=== PATIENT | male | born 1945 | race American Indian/Alaskan Native ===

== ENCOUNTER 2016-10-20 08:07 | Outpatient (CLI) | payer MEDICARE ==
[2016-10-20] MEDS ORDERED: XYLOCAINE TOPICAL 4% TP ONE (08:30)
[2016-10-20] MEDS ORDERED: XYLOCAINE TOPICAL 2% TP ONE (08:30)
== END 2016-10-20 08:08 | disposition home or self-care (01) ==
LOC: WOUND 08:07
PROVIDERS: ATTEND Internal Medicine
DX: I87.313 Chronic venous hypertension (idiopathic) with ulcer of bilateral lower extremity (principal); L97.821 Non-pressure chronic ulcer of other part of left lower leg limited to breakdown of skin; L97.811 Non-pressure chronic ulcer of other part of right lower leg limited to breakdown of skin; I89.0 Lymphedema, not elsewhere classified; I50.20 Unspecified systolic (congestive) heart failure; E78.2 Mixed hyperlipidemia; E11.43 Type 2 diabetes mellitus with diabetic autonomic (poly)neuropathy; I10 Essential (primary) hypertension
CPT/HCPCS: 29580

== ENCOUNTER 2016-10-24 11:33 | Outpatient (CLI) | payer MEDICARE | END 2016-10-24 11:34 | disposition home or self-care (01) | LOC: WOUND 11:33 | PROVIDERS: ATTEND Podiatrist | DX: I87.313 Chronic venous hypertension (idiopathic) with ulcer of bilateral lower extremity (principal); L97.821 Non-pressure chronic ulcer of other part of left lower leg limited to breakdown of skin; L97.811 Non-pressure chronic ulcer of other part of right lower leg limited to breakdown of skin; I89.0 Lymphedema, not elsewhere classified; E13.43 Other specified diabetes mellitus with diabetic autonomic (poly)neuropathy; E78.2 Mixed hyperlipidemia; I50.20 Unspecified systolic (congestive) heart failure | CPT/HCPCS: 29580; 99213; G0463 ==

== ENCOUNTER 2016-10-27 09:29 | Outpatient (CLI) | payer MEDICARE ==
[2016-10-27] MEDS ORDERED: XYLOCAINE TOPICAL 2% TP ONE ×2 (11:05→15:05)
== END 2016-10-27 09:30 | disposition home or self-care (01) ==
LOC: WOUND 09:29
PROVIDERS: ATTEND Internal Medicine
DX: I87.313 Chronic venous hypertension (idiopathic) with ulcer of bilateral lower extremity (principal); L97.821 Non-pressure chronic ulcer of other part of left lower leg limited to breakdown of skin; L97.811 Non-pressure chronic ulcer of other part of right lower leg limited to breakdown of skin; I89.0 Lymphedema, not elsewhere classified; E08.8 Diabetes mellitus due to underlying condition with unspecified complications; E13.43 Other specified diabetes mellitus with diabetic autonomic (poly)neuropathy; I11.0 Hypertensive heart disease with heart failure; I50.20 Unspecified systolic (congestive) heart failure; E10.40 Type 1 diabetes mellitus with diabetic neuropathy, unspecified

== ENCOUNTER 2016-11-07 09:52 | Outpatient (CLI) | payer MEDICARE | END 2016-11-07 09:53 | disposition home or self-care (01) | LOC: WOUND 09:52 | PROVIDERS: ATTEND Podiatrist | DX: I87.313 Chronic venous hypertension (idiopathic) with ulcer of bilateral lower extremity (principal); E10.622 Type 1 diabetes mellitus with other skin ulcer; L97.811 Non-pressure chronic ulcer of other part of right lower leg limited to breakdown of skin; E13.43 Other specified diabetes mellitus with diabetic autonomic (poly)neuropathy; I89.0 Lymphedema, not elsewhere classified; E78.2 Mixed hyperlipidemia; I11.0 Hypertensive heart disease with heart failure; I50.9 Heart failure, unspecified | CPT/HCPCS: 29581 ==

== ENCOUNTER 2016-11-10 07:42 | Outpatient (CLI) | payer MEDICARE ==
[2016-11-10] MEDS ORDERED: XYLOCAINE TOPICAL 4% TP ONE ×2 (08:16→11:07)
== END 2016-11-10 07:43 | disposition home or self-care (01) ==
LOC: WOUND 07:42
PROVIDERS: ATTEND Internal Medicine
DX: I87.313 Chronic venous hypertension (idiopathic) with ulcer of bilateral lower extremity (principal); E10.622 Type 1 diabetes mellitus with other skin ulcer; L97.821 Non-pressure chronic ulcer of other part of left lower leg limited to breakdown of skin; L97.811 Non-pressure chronic ulcer of other part of right lower leg limited to breakdown of skin; I89.0 Lymphedema, not elsewhere classified; E10.40 Type 1 diabetes mellitus with diabetic neuropathy, unspecified; E08.8 Diabetes mellitus due to underlying condition with unspecified complications; E13.43 Other specified diabetes mellitus with diabetic autonomic (poly)neuropathy; E78.2 Mixed hyperlipidemia; I11.0 Hypertensive heart disease with heart failure; I50.20 Unspecified systolic (congestive) heart failure

== ENCOUNTER 2016-11-13 10:29 | Outpatient (CLI) | payer MEDICARE ==
[2016-11-13] MEDS ORDERED: AD OINTMENT TP ONE (10:56)
== END 2016-11-13 10:30 | disposition home or self-care (01) ==
LOC: WOUND 10:29
PROVIDERS: ATTEND Nurse Practitioner
DX: I87.313 Chronic venous hypertension (idiopathic) with ulcer of bilateral lower extremity (principal); L97.821 Non-pressure chronic ulcer of other part of left lower leg limited to breakdown of skin; L97.811 Non-pressure chronic ulcer of other part of right lower leg limited to breakdown of skin; E78.2 Mixed hyperlipidemia; E10.43 Type 1 diabetes mellitus with diabetic autonomic (poly)neuropathy; I11.0 Hypertensive heart disease with heart failure; I50.9 Heart failure, unspecified; I89.0 Lymphedema, not elsewhere classified
CPT/HCPCS: 29581; G0463; 99212; A6250

== ENCOUNTER 2016-11-17 09:20 | Outpatient (CLI) | payer MEDICARE ==
[2016-11-17] MEDS ORDERED: XYLOCAINE TOPICAL 4% TP ONE ×2 (10:16→10:59)
[2016-11-17] MEDS ORDERED: AD OINTMENT TP ONE (11:25)
[2016-11-18] MEDS ORDERED: AD OINTMENT TP SCH (10:00)
== END 2016-11-17 09:21 | disposition home or self-care (01) ==
LOC: WOUND 09:20
PROVIDERS: ATTEND Internal Medicine
DX: I87.313 Chronic venous hypertension (idiopathic) with ulcer of bilateral lower extremity (principal); E10.622 Type 1 diabetes mellitus with other skin ulcer; L97.821 Non-pressure chronic ulcer of other part of left lower leg limited to breakdown of skin; L97.811 Non-pressure chronic ulcer of other part of right lower leg limited to breakdown of skin; I89.0 Lymphedema, not elsewhere classified; E10.42 Type 1 diabetes mellitus with diabetic polyneuropathy; E78.2 Mixed hyperlipidemia; I11.0 Hypertensive heart disease with heart failure; I50.20 Unspecified systolic (congestive) heart failure; E10.40 Type 1 diabetes mellitus with diabetic neuropathy, unspecified
CPT/HCPCS: 29581; A6250

== ENCOUNTER 2016-11-20 11:01 | Outpatient (CLI) | payer MEDICARE | END 2016-11-20 11:02 | disposition home or self-care (01) | LOC: WOUND 11:01 | PROVIDERS: ATTEND Nurse Practitioner | DX: I87.313 Chronic venous hypertension (idiopathic) with ulcer of bilateral lower extremity (principal); E10.622 Type 1 diabetes mellitus with other skin ulcer; L97.821 Non-pressure chronic ulcer of other part of left lower leg limited to breakdown of skin; L97.811 Non-pressure chronic ulcer of other part of right lower leg limited to breakdown of skin; I89.0 Lymphedema, not elsewhere classified; E78.2 Mixed hyperlipidemia; I11.0 Hypertensive heart disease with heart failure; I50.9 Heart failure, unspecified; E10.40 Type 1 diabetes mellitus with diabetic neuropathy, unspecified; E10.43 Type 1 diabetes mellitus with diabetic autonomic (poly)neuropathy | CPT/HCPCS: 29581 ==

== ENCOUNTER 2016-11-27 10:35 | Outpatient (CLI) | payer MEDICARE ==
[2016-11-27] MEDS ORDERED: AD OINTMENT TP ONE (11:26)
[2016-11-28] MEDS ORDERED: AD OINTMENT TP SCH (10:00)
== END 2016-11-27 10:36 | disposition home or self-care (01) ==
LOC: WOUND 10:35
PROVIDERS: ATTEND Nurse Practitioner
DX: I87.313 Chronic venous hypertension (idiopathic) with ulcer of bilateral lower extremity (principal); E10.622 Type 1 diabetes mellitus with other skin ulcer; L97.821 Non-pressure chronic ulcer of other part of left lower leg limited to breakdown of skin; L97.811 Non-pressure chronic ulcer of other part of right lower leg limited to breakdown of skin; I89.0 Lymphedema, not elsewhere classified; E78.2 Mixed hyperlipidemia; I11.0 Hypertensive heart disease with heart failure; I50.20 Unspecified systolic (congestive) heart failure; E10.40 Type 1 diabetes mellitus with diabetic neuropathy, unspecified
CPT/HCPCS: 11750; 29581; A6250; G0463-25

== ENCOUNTER 2016-12-01 09:40 | Outpatient (CLI) | payer MEDICARE ==
[2016-12-01] MEDS ORDERED: XYLOCAINE TOPICAL 4% TP ONE ×2 (10:33→11:43)
== END 2016-12-01 09:41 | disposition home or self-care (01) ==
LOC: WOUND 09:40
PROVIDERS: ATTEND Internal Medicine
DX: I87.313 Chronic venous hypertension (idiopathic) with ulcer of bilateral lower extremity (principal); E10.622 Type 1 diabetes mellitus with other skin ulcer; L97.821 Non-pressure chronic ulcer of other part of left lower leg limited to breakdown of skin; L97.811 Non-pressure chronic ulcer of other part of right lower leg limited to breakdown of skin; I89.0 Lymphedema, not elsewhere classified; E13.43 Other specified diabetes mellitus with diabetic autonomic (poly)neuropathy; E78.2 Mixed hyperlipidemia; I11.0 Hypertensive heart disease with heart failure; I50.20 Unspecified systolic (congestive) heart failure; E10.40 Type 1 diabetes mellitus with diabetic neuropathy, unspecified
CPT/HCPCS: 29581

== ENCOUNTER 2016-12-05 12:09 | Outpatient (CLI) | payer MEDICARE | END 2016-12-05 12:10 | disposition home or self-care (01) | LOC: WOUND 12:09 | PROVIDERS: ATTEND Podiatrist | DX: I87.313 Chronic venous hypertension (idiopathic) with ulcer of bilateral lower extremity (principal); L97.821 Non-pressure chronic ulcer of other part of left lower leg limited to breakdown of skin; L97.811 Non-pressure chronic ulcer of other part of right lower leg limited to breakdown of skin; E13.43 Other specified diabetes mellitus with diabetic autonomic (poly)neuropathy; E78.2 Mixed hyperlipidemia; I11.0 Hypertensive heart disease with heart failure; I50.20 Unspecified systolic (congestive) heart failure; E10.40 Type 1 diabetes mellitus with diabetic neuropathy, unspecified; I89.0 Lymphedema, not elsewhere classified | CPT/HCPCS: 29581 ==

== ENCOUNTER 2016-12-08 09:52 | Outpatient (CLI) | payer MEDICARE ==
[2016-12-08] MEDS ORDERED: XYLOCAINE TOPICAL 4% TP ONE ×2 (10:06→12:00)
== END 2016-12-08 09:53 | disposition home or self-care (01) ==
LOC: WOUND 09:52
PROVIDERS: ATTEND Internal Medicine
DX: I87.313 Chronic venous hypertension (idiopathic) with ulcer of bilateral lower extremity (principal); E10.622 Type 1 diabetes mellitus with other skin ulcer; L97.821 Non-pressure chronic ulcer of other part of left lower leg limited to breakdown of skin; L97.811 Non-pressure chronic ulcer of other part of right lower leg limited to breakdown of skin; E13.43 Other specified diabetes mellitus with diabetic autonomic (poly)neuropathy; E78.2 Mixed hyperlipidemia; I11.0 Hypertensive heart disease with heart failure; I50.20 Unspecified systolic (congestive) heart failure; I89.0 Lymphedema, not elsewhere classified; E10.40 Type 1 diabetes mellitus with diabetic neuropathy, unspecified; H53.8 Other visual disturbances
CPT/HCPCS: 29581

== ENCOUNTER 2016-12-11 11:30 | Outpatient (CLI) | payer MEDICARE | END 2016-12-11 11:31 | disposition home or self-care (01) | LOC: WOUND 11:30 | PROVIDERS: ATTEND Nurse Practitioner | DX: I87.313 Chronic venous hypertension (idiopathic) with ulcer of bilateral lower extremity (principal); E10.622 Type 1 diabetes mellitus with other skin ulcer; L97.821 Non-pressure chronic ulcer of other part of left lower leg limited to breakdown of skin; L97.811 Non-pressure chronic ulcer of other part of right lower leg limited to breakdown of skin; I11.0 Hypertensive heart disease with heart failure; I50.20 Unspecified systolic (congestive) heart failure; E13.43 Other specified diabetes mellitus with diabetic autonomic (poly)neuropathy; I89.0 Lymphedema, not elsewhere classified; E78.2 Mixed hyperlipidemia | CPT/HCPCS: 99212; G0463 ==

== ENCOUNTER 2016-12-15 10:20 | Outpatient (CLI) | payer MEDICARE ==
[2016-12-15] MEDS ORDERED: XYLOCAINE TOPICAL 4% TP ONE (10:42)
== END 2016-12-15 10:21 | disposition home or self-care (01) ==
LOC: WOUND 10:20
PROVIDERS: ATTEND Internal Medicine
DX: E10.622 Type 1 diabetes mellitus with other skin ulcer (principal); I87.313 Chronic venous hypertension (idiopathic) with ulcer of bilateral lower extremity; L97.811 Non-pressure chronic ulcer of other part of right lower leg limited to breakdown of skin; L97.821 Non-pressure chronic ulcer of other part of left lower leg limited to breakdown of skin; E10.43 Type 1 diabetes mellitus with diabetic autonomic (poly)neuropathy; E78.2 Mixed hyperlipidemia; I10 Essential (primary) hypertension; I50.20 Unspecified systolic (congestive) heart failure; I89.0 Lymphedema, not elsewhere classified
CPT/HCPCS: 29581

== ENCOUNTER 2016-12-18 12:17 | Outpatient (CLI) | payer MEDICARE | END 2016-12-18 12:18 | disposition home or self-care (01) | LOC: WOUND 12:17 | PROVIDERS: ATTEND Nurse Practitioner | DX: I87.313 Chronic venous hypertension (idiopathic) with ulcer of bilateral lower extremity (principal); E10.622 Type 1 diabetes mellitus with other skin ulcer; L97.811 Non-pressure chronic ulcer of other part of right lower leg limited to breakdown of skin; L97.821 Non-pressure chronic ulcer of other part of left lower leg limited to breakdown of skin; E10.40 Type 1 diabetes mellitus with diabetic neuropathy, unspecified; E13.43 Other specified diabetes mellitus with diabetic autonomic (poly)neuropathy; I11.0 Hypertensive heart disease with heart failure; I50.9 Heart failure, unspecified; I89.0 Lymphedema, not elsewhere classified; E78.2 Mixed hyperlipidemia | CPT/HCPCS: 29581 ==

== ENCOUNTER 2016-12-22 11:37 | Outpatient (CLI) | payer MEDICARE ==
[2016-12-22] MEDS ORDERED: XYLOCAINE TOPICAL 2% ONE (12:26)
[2016-12-22] MEDS ORDERED: XYLOCAINE TOPICAL 2% TP ONE (15:35)
== END 2016-12-22 11:38 | disposition home or self-care (01) ==
LOC: WOUND 11:37
PROVIDERS: ATTEND Internal Medicine
DX: E10.622 Type 1 diabetes mellitus with other skin ulcer (principal); I87.313 Chronic venous hypertension (idiopathic) with ulcer of bilateral lower extremity; L97.811 Non-pressure chronic ulcer of other part of right lower leg limited to breakdown of skin; L97.821 Non-pressure chronic ulcer of other part of left lower leg limited to breakdown of skin; E10.43 Type 1 diabetes mellitus with diabetic autonomic (poly)neuropathy; E78.2 Mixed hyperlipidemia; I11.0 Hypertensive heart disease with heart failure; I50.20 Unspecified systolic (congestive) heart failure; I89.0 Lymphedema, not elsewhere classified; E66.9 Obesity, unspecified
CPT/HCPCS: 29581

== ENCOUNTER 2016-12-26 12:21 | Outpatient (CLI) | payer MEDICARE | END 2016-12-26 12:22 | disposition home or self-care (01) | LOC: WOUND 12:21 | PROVIDERS: ATTEND Podiatrist | DX: I87.313 Chronic venous hypertension (idiopathic) with ulcer of bilateral lower extremity (principal); E11.622 Type 2 diabetes mellitus with other skin ulcer; L97.821 Non-pressure chronic ulcer of other part of left lower leg limited to breakdown of skin; L97.811 Non-pressure chronic ulcer of other part of right lower leg limited to breakdown of skin; I89.0 Lymphedema, not elsewhere classified; E08.8 Diabetes mellitus due to underlying condition with unspecified complications; E13.43 Other specified diabetes mellitus with diabetic autonomic (poly)neuropathy; E78.2 Mixed hyperlipidemia; I11.0 Hypertensive heart disease with heart failure; I50.22 Chronic systolic (congestive) heart failure; E11.40 Type 2 diabetes mellitus with diabetic neuropathy, unspecified | CPT/HCPCS: 99212; G0463 ==

== ENCOUNTER 2016-12-29 08:27 | Outpatient (CLI) | payer MEDICARE ==
[2016-12-29] MEDS ORDERED: XYLOCAINE TOPICAL 2% ONE (09:27)
[2016-12-29] MEDS ORDERED: XYLOCAINE TOPICAL 2% TP ONE (09:35)
== END 2016-12-29 08:28 | disposition home or self-care (01) ==
LOC: WOUND 08:27
PROVIDERS: ATTEND Internal Medicine
DX: I87.313 Chronic venous hypertension (idiopathic) with ulcer of bilateral lower extremity (principal); E11.622 Type 2 diabetes mellitus with other skin ulcer; L97.821 Non-pressure chronic ulcer of other part of left lower leg limited to breakdown of skin; L97.811 Non-pressure chronic ulcer of other part of right lower leg limited to breakdown of skin; E78.2 Mixed hyperlipidemia; I11.0 Hypertensive heart disease with heart failure; I50.20 Unspecified systolic (congestive) heart failure; H53.8 Other visual disturbances; I89.0 Lymphedema, not elsewhere classified; E11.40 Type 2 diabetes mellitus with diabetic neuropathy, unspecified
CPT/HCPCS: 29581

== ENCOUNTER 2017-01-26 08:23 | Outpatient (CLI) | payer MEDICARE | END 2017-01-26 08:24 | disposition home or self-care (01) | LOC: WOUND 08:23 | PROVIDERS: ATTEND Internal Medicine | DX: I87.313 Chronic venous hypertension (idiopathic) with ulcer of bilateral lower extremity (principal); E11.622 Type 2 diabetes mellitus with other skin ulcer; L97.821 Non-pressure chronic ulcer of other part of left lower leg limited to breakdown of skin; L97.811 Non-pressure chronic ulcer of other part of right lower leg limited to breakdown of skin; E11.40 Type 2 diabetes mellitus with diabetic neuropathy, unspecified; E13.43 Other specified diabetes mellitus with diabetic autonomic (poly)neuropathy; E78.2 Mixed hyperlipidemia; I11.0 Hypertensive heart disease with heart failure; I50.9 Heart failure, unspecified; I89.0 Lymphedema, not elsewhere classified; H53.8 Other visual disturbances | CPT/HCPCS: 29581 ==

== ENCOUNTER 2017-01-28 14:41 | Outpatient (CLI) | payer MEDICARE | END 2017-01-28 14:42 | disposition home or self-care (01) | LOC: WOUND 14:41 | PROVIDERS: ATTEND Internal Medicine | DX: I87.313 Chronic venous hypertension (idiopathic) with ulcer of bilateral lower extremity (principal); E10.622 Type 1 diabetes mellitus with other skin ulcer; L97.821 Non-pressure chronic ulcer of other part of left lower leg limited to breakdown of skin; L97.811 Non-pressure chronic ulcer of other part of right lower leg limited to breakdown of skin; I89.0 Lymphedema, not elsewhere classified; E13.43 Other specified diabetes mellitus with diabetic autonomic (poly)neuropathy; E78.2 Mixed hyperlipidemia; I11.0 Hypertensive heart disease with heart failure; I50.9 Heart failure, unspecified; E11.40 Type 2 diabetes mellitus with diabetic neuropathy, unspecified | CPT/HCPCS: 99213; G0463 ==